=== PATIENT | male | born 1975 | race Caucasian/White ===

== ENCOUNTER 2021-12-10 13:42 | Emergency (ER) | payer MEDICAID ==
[~2021-12-10] VITALS: Ht 170.2 cm; Wt 78.0 kg
[2021-12-10] MEDS ORDERED: HALOPERIDOL LACTATE 5MG/ML VIAL IM STA (14:26)
[2021-12-10 15:45] LABS: BASOPHILS % 0.3 % (0.0-2.0); EOSINOPHILS % 0.1 % (0.0-5.0); HEMOGLOBIN. 17.1 g/dL (14.0-18.0); LYMPHOCYTES % 14.1 % (20.0-50.0); MEAN CORPUSCULAR HEMOGLOBIN 31.3 pg (28.0-32.0); MEAN CORPUSCULAR VOLUME 91.7 fL (80.0-94.0); MEAN PLATELET VOLUME 8.4 fl (7.4-10.4); MONOCYTES % 14.6 % (2.0-8.0); NEUTROPHILS % 70.9 % (40.0-76.0); PLATELET 313 x1000/uL (130-400); RED BLOOD CELL COUNT 5.45 mill/uL (4.7-6.1); RED CELL DISTRIBUTION WIDTH 13.6 % (11.6-14.6)
[2021-12-10 15:52] LABS: CHLORIDE 99 mEq/L (98-107)
[2021-12-10 16:10] LABS: CREATINE KINASE 266 IU/L (39-308); ETHANOL BLOOD < 10 mg/dL
[2021-12-10] MEDS: HALOPERIDOL LACTATE 5MG/ML VIAL IM NR (16:21)
[2021-12-11] VITALS: BP 152/76
== END 2021-12-11 00:45 | disposition home or self-care (01) ==
LOC: EDBD 13:52 → ER 13:52
DX: R41.82 Altered mental status, unspecified (principal); Z20.822 Contact with and (suspected) exposure to COVID-19
CPT/HCPCS: 36415; 70450; 80053; 80307; 80320; 80329; 82550; 82962; 85025; 87426; 96372; 99285; C9803; J1630; G0480